=== PATIENT | female | born 2005 | race Hispanic/Latino ===

== ENCOUNTER 2024-12-07 21:51 | Emergency (ER) | payer SELFPAY ==
[~2024-12-07] VITALS: Ht 157.5 cm; Wt 73.0 kg
[2024-12-07] MEDS ORDERED: NEOMYCIN-BACITRACIN-POLYMYXIN 0.5 GM/PAK PAK TOP ONE (22:25)
[2024-12-07 22:46] VITALS: BP 137/83
== END 2024-12-07 22:50 | disposition home or self-care (01) | DRG 605 ==
LOC: ED 21:51
DX: S61.011A Laceration without foreign body of right thumb without damage to nail, initial encounter (principal); S61.210A Laceration without foreign body of right index finger without damage to nail, initial encounter; S61.212A Laceration without foreign body of right middle finger without damage to nail, initial encounter; S61.214A Laceration without foreign body of right ring finger without damage to nail, initial encounter; W27.8XXA Contact with other nonpowered hand tool, initial encounter; Y99.0 Civilian activity done for income or pay